=== PATIENT | male | born 2000 | race African-American/Black ===

== ENCOUNTER 2020-11-15 16:36 | Emergency (ER) | payer SELFPAY ==
[~2020-11-15] VITALS: Ht 165.1 cm; Wt 74.0 kg
[2020-11-15 16:45] VITALS: BP 145/64
[2020-11-15] MEDS ORDERED: HYDROcodone/APAP 5/325MG 1 TAB TABLET PO ONE (17:00)
[2020-11-15] MEDS ORDERED: DIPH,PERTUSS(ACELL),TET VAC/PF 0.5 ML SYRINGE. VAX IM ONE (17:30)
[2020-11-15] MEDS ORDERED: BACI1PAC4 TP (17:44)
[2020-11-15] MEDS ORDERED: CEPH500C PO (17:44)
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
[2020-11-15] MEDS ORDERED: BACITRACIN TOPICAL OINT PACKET. TP ONE (18:00)
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
== END 2020-11-15 19:05 | disposition home or self-care (01) ==
LOC: ER 16:36
DX: S90.811A Abrasion, right foot, initial encounter (principal); S90.812A Abrasion, left foot, initial encounter; Y04.0XXA Assault by unarmed brawl or fight, initial encounter; Y93.89 Activity, other specified; Y92.89 Other specified places as the place of occurrence of the external cause; Y99.8 Other external cause status
CPT/HCPCS: 90471; 90715; 99283; 73630-50